=== PATIENT | female | born 1955 | race African-American/Black ===

== ENCOUNTER 2017-02-25 16:20 | Emergency (ER) | payer MEDICARE, OTHER ==
[~2017-02-25] VITALS: Ht 165.1 cm; Wt 90.0 kg
[~2017-02-25 16:20] MED LIST: AMLO5TAB88 PO; ATEN-175 PO; HYDR-523 PO; LORA-249 PO; LOSA100T14 PO; LOSA1TAB37 PO; SIMV20TA6 PO; ZOLP5TAB8 PO
[2017-02-25] MEDS ORDERED: ACETAMINOPHEN WITH CODEINE 300/60MG TABLET PO ONE (18:45)
[2017-02-25] MEDS ORDERED: ONDANSETRON 4MG ODT PO ONE (18:45)
[2017-02-25] MEDS ORDERED: HYDROCODONE/ACETAMINOPHEN 5/325MG TABLET PO ONE (19:15)
[2017-02-25 19:30] VITALS: BP 164/105
== END 2017-02-25 19:38 | disposition home or self-care (01) ==
LOC: ER 16:27
DX: S39.012A Strain of muscle, fascia and tendon of lower back, initial encounter (principal); I10 Essential (primary) hypertension; K50.90 Crohn's disease, unspecified, without complications; V89.2XXA Person injured in unspecified motor-vehicle accident, traffic, initial encounter; Y93.89 Activity, other specified; Y99.8 Other external cause status; Y92.410 Unspecified street and highway as the place of occurrence of the external cause
CPT/HCPCS: 99283; Q0162